=== PATIENT | female | born 1980 | race Caucasian/White ===

== ENCOUNTER 2017-05-07 09:28 | Emergency (ER) | payer SELFPAY ==
[2017-05-07] MEDS ORDERED: SODIUM CHLORIDE 1,000 ML IV STA ×2 (09:38→10:58)
[2017-05-07 09:44] VITALS: BP 115/81; PULSE 84; TEMP 98.1; BMI 29.5
--- NOTE | 2017-05-07 10:00 | PDOC ---
History of Present Illness - General Chief Complaint: Lightheaded Stated Complaint: DIZZINESS Time Seen by Provider: 05/07/17 09:32 History Source: Patient, Old Records Exam Limitations: No Limitations - History of Present Illness Initial Comments: 05/07/17 09:57 37-year-old female with history of gestational diabetes and anxiety presents the emergency Department with complaints of 4 days of feeling generalized weakness and dizziness. The patient states that she was treated at [facility] last week on Thursday for a yeast infection and was told that she had glucose in her urine and needed to follow-up. The patient does not have a primary care physician. She also has various other complains such as intermittent vomiting and occasional blurry vision. She denies chest pain, shortness of breath, abdominal pain. She denies further complaints. Past History - Past Medical History Allergies/Adverse Reactions: Allergies Allergy/AdvReac Type Severity Reaction Status Date / Time fish derived Allergy Mild Verified 05/07/17 09:38 shellfish derived Allergy Mild Verified 05/07/17 09:38 Home Medications: Ambulatory Orders Citalopram Hydrobromide [Celexa -] 10 mg PO HS 10/31/14 Metformin HCl [Glucophage] 500 mg PO BID #60 tablet 05/07/17 Diabetes: Yes (GESTATIONAL DIABETES) Psychiatric Problems: Yes (DEPRESSION, ANXIETY) - Surgical History Appendectomy: Yes - Reproductive History (#): 4 Para: 2 Therapeutic (s) & number: No Spontaneous : 1 - Psycho/Social/Smoking Cessation Hx Anxiety: No Suicidal Ideation: No Smoking Status: No Smoking History: Former smoker Have you smoked in the past 12 months: Yes Number of Cigarettes Smoked Daily: 1 Information on smoking cessation initiated: Yes 'Breaking Loose' booklet given: 05/07/17 Hx Alcohol Use: No Substance Use Type: None Review of Systems - Review of Systems Able to Perform ROS?: Yes Is the patient limited Greenlandic proficient: No Constitutional: Yes: See HPI HEENTM: Yes: Blurred Vision Respiratory: No: Symptoms reported Cardiac (ROS): No: Symptoms Reported ABD/GI: No: Symptoms Reported : Yes: See HPI Musculoskeletal: No: Symptoms Reported Integumentary: No: Symptoms Reported Neurological: No: Symptoms reported *Physical Exam - Vital Signs Last Vital Signs Temp Pulse Resp BP Pulse Ox 98.1 F 84 18 115/81 96 05/07/17 09:30 05/07/17 09:30 05/07/17 09:30 05/07/17 09:30 05/07/17 09:30 - Physical Exam Comments: 05/07/17 09:58 GENERAL: Well developed, well nourished. Awake and alert. No acute distress. HEENT: Normocephalic, atraumatic. PERRLA, EOMI. No conjunctival pallor. Sclera are non- icteric. Moist mucous membranes. Oropharynx is clear. NECK: Supple. Full ROM. No JVD. No lymphadenopathy. CARDIOVASCULAR: Regular rate and rhythm. No murmurs, rubs, or gallops. Distal pulses are 2+ and symmetric. PULMONARY: No evidence of respiratory distress. Lungs clear to auscultation bilaterally. No wheezing, rales or rhonchi. ABDOMINAL: Soft. Non-tender. Non-distended. No rebound or guarding. No organomegaly. Normoactive bowel sounds. MUSCULOSKELETAL Normal range of motion at all joints. No bony deformities or tenderness. No CVA tenderness. EXTREMITIES: No cyanosis. No clubbing. No edema. No calf tenderness. SKIN: Warm and dry. Normal capillary refill. No rashes. No jaundice. NEUROLOGICAL: Alert, awake, appropriate. Cranial nerves 2-12 intact. Grossly non-focal exam. PSYCHIATRIC: Cooperative. Good eye contact. Appropriate mood and affect. ED Treatment Course - LABORATORY CBC & Chemistry Diagram: 05/07/17 10:00 05/07/17 10:00 Medical Decision Making - Medical Decision Making 05/07/17 09:59 37-year-old female with complaints of weakness and dizziness. Differential diagnosis includes but is not limited to: New-onset diabetes, electrolyte abnormality, atypical presentation of ACS, toxic/metabolic derangement, infection, . Plan: 1. Urine analysis 2. EKG 3. Labs 4. Observe and reevaluate 05/07/17 11:30 Labs were reviewed and are noted in the EMR. The glucose is in the 300s but the anion gap is normal and she is not acidotic. The patient was hydrated with 2 L of IV fluids and repeat glucose is 264. Her EKG shows normal sinus rhythm at 75 bpm with normal axis, intervals and no acute ST segment changes. The plan is to discharge the patient home with Glucophage 500 mg twice a day. I have informed the patient that she is follow-up with primary care physician and return to the emergency department if her symptoms persist, worsen, or new symptoms arise. *DC/Admit/Observation/Transfer Diagnosis at time of Disposition: Weakness, Uncontrolled diabetes mellitus - Discharge Dispostion Disposition: HOME Condition at time of disposition: Stable Admit: No - Prescriptions Prescriptions: Metformin HCl [Glucophage] 500 mg PO BID #60 tablet - Patient Instructions Printed Discharge Instructions: DI for Diabetes Type 2 Additional Instructions: You have diabetes. You have been prescribed a medication called Glucophage 500 mgtake 1 tablet twice daily. Please follow-up with her primary care physician within the next week and return to the emergency department if your symptoms persist, worsen, or new symptoms arise.
[2017-05-07 10:23] LABS: BASOPHIL 0.8 % (0-2.0); EOSINOPHIL 2.7 % (0-4.5); MCH 26.9 pg (25.7-33.7); MCHC 34.4 g/dl (32.0-36.0); MEAN CELL VOLUME 78.3 fl (80-96); MEAN PLT VOLUME 9.3 fl (7.5-11.1); NEUTROPHILS 61.2 % (42.8-82.8); PLATELET COUNT 292 K/MM3 (134-434); RDW 11.7 % (11.6-15.6); WHITE BLOOD COUNT 7.9 K/mm3 (4.0-10.8)
[2017-05-07 10:27] LABS: PH,URINE 5.5 (4.5-8); URINE APPEARANCE Clear; URINE BILIRUBIN Negative (NEGATIVE); URINE BLOOD Trace-intact (NEGATIVE); URINE GLUCOSE (UA) 3+ (NEGATIVE); URINE KETONE 2+ (NEGATIVE); URINE LEUK ESTERASE Negative (NEGATIVE); URINE NITRITE Negative (NEGATIVE); URINE PROTEIN Negative (NEGATIVE); URINE UROBILINOGEN 0.2 E.U/dl (0.2-1.0)
[2017-05-07 10:47] LABS: ALBUMIN 3.2 g/dl (3.5-5.0); ALK PHOS 71 U/L (32-92); ANION GAP 9 (8-16); BILIRUBIN,TOTAL 0.7 mg/dl (0.2-1.0); CALCIUM 8.8 mg/dl (8.4-10.2); CO2 25 mmol/L (22-28); COCKROFT - GAULT 176.6045; CPK(DFH) 57 IU/L (26-140); CREATININE 0.6 mg/dl (0.6-1.3); MAGNESIUM 1.6 mg/dL (1.8-2.4); PHOSPHOROUS 3.2 mg/dl (2.5-4.6); SGOT/AST 14 U/L (10-42); SGPT/ALT 15 U/L (10-40); TOT PROT 6.3 g/dl (6.4-8.3)
[2017-05-07 10:53] LABS: URINE COLOR YELLOW
[2017-05-07 10:56] LABS: GLUCOSE,RANDOM 337 mg/dl (74-106)
[2017-05-07] MEDS ORDERED: SODIUM CHLORIDE 1,000 ML IV ONE (10:56)
[2017-05-07] MEDS ORDERED: HEMOQUE TEST 1 EACH EACH ONE (11:24)
--- NOTE | 2017-05-07 17:52 | EKG ---
Test Reason : Blood Pressure : / mmHG Vent. Rate : 075 BPM Atrial Rate : 075 BPM P-R Int : 138 ms QRS Dur : 080 ms QT Int : 456 ms P-R-T Axes : 051 032 008 degrees QTc Int : 509 ms NORMAL SINUS RHYTHM PROLONGED QT Mild NSTW changes NO PREVIOUS ECGS AVAILABLE Confirmed by MD GERALDINE, SIERRA ([id number]) on 05/07/2017 5:52:19 PM Referred By: LILIAM OHARA Confirmed By:SIERRA CHANDLER MD
[2017-05-07 19:13] LABS: TROPONIN I (DFP) < 0.03 ng/ml (0.03-0.50)
== END 2017-05-07 11:40 | disposition home or self-care (01) ==
LOC: FER 09:28
PROC: 3E0337Z Introduction of Electrolytic and Water Balance Substance into Peripheral Vein, Percutaneous Approach (ICD-10-PCS; principal; 2017-05-07)
DX: E11.65 Type 2 diabetes mellitus with hyperglycemia (principal); R53.1 Weakness; Z86.32 Personal history of gestational diabetes; Z87.891 Personal history of nicotine dependence; F41.8 Other specified anxiety disorders
CPT/HCPCS: 36415; 80053; 81003; 82550; 83690; 83735; 84100; 84484; 84703; 85025; 93005; 99283-25

== ENCOUNTER 2017-06-09 18:38 | Emergency (ER) | payer SELFPAY ==
[2017-06-09 18:45] VITALS: BP 111/70; PULSE 95; TEMP 98.3; BMI 27.9
[2017-06-09] MEDS ORDERED: DEXAMETHASONE SOD PHOSPHATE 10 MG/1 ML VIAL IM ONE (19:23)
--- NOTE | 2017-06-09 19:24 | PDOC ---
History of Present Illness - History of Present Illness Initial Comments: 06/09/17 19:29 The patient is a 37 year old female, with a significant past medical history of hypertension, gestational diabetes, and anxiety, who presents to the emergency department with progressive edema to her upper lip since this morning. She reports taking one tablet of Benadryl this morning. She states the swelling began to the left side of her top lip, however, has progressed to the right side , as well. She states the swelling is now subsiding minimally since she has been in the ED. She denies trouble breathing. The patient does reports starting new medications two weeks ago (lisinopril, crestor, tradjenta and metformin). She denies the use of new lotions or body washes. She denies eating new foods. She denies chest pain, shortness of breath, headache and dizziness. She denies fever, chills, nausea, vomit, diarrhea and constipation. She denies dysuria, frequency, urgency and hematuria. PAST MEDICAL HISTORY: hypertension, diabetes, and anxiety PAST SURGICAL HISTORY: appendectomy FAMILY HISTORY: no pertinent history SOCIAL HISTORY: Pt lives with family and is employed. MEDICATIONS: reviewed ALLERGIES: As per nursing notes ROS General: No fevers or chills, no weakness, no weight loss HEENT: (+) facial edema. No change in vision. No sore throat,. No ear pain CardioVascular: No chest pain or shortness of breath Respiratory:No cough, or wheezing. Gastrointestinal: no nausea, vomiting, diarrhea or constipation, No rectal bleeding Genitourinary: No dysuria, hematuria, or frequency Musculoskeletal: No joint or muscle pain or swelling Neurologic: No headache, vertigo, dizziness or loss of consciousness Psychiatric: nor depression Skin: (+) facial edema. No rashes or easy bruising Endocrine: no increased thirst or abnormal weight change Allergic: no skin or latex allergy All other systems reviewed and normal Physical Exam: General: Well-nourished well-developed individual, no acute distress HEENT: (+) mild angioedema of upper lip, no angioedema to tongue or posterior oropharynx. Throat: Normal, tonsils normal, no erythema or exudate Eyes:Pupils equal reactive and round, extraocular motion intact Chest: Nontender to palpation Cardiac: S1-S2 normal, regular rate and rhythm, no murmurs rubs or gallops Respiratory: Lungs clear to auscultation bilateral. No wheezing. Extremities: Warm, dry, no cyanosis, clubbing, or edema Skin: (+) mild angioedema of upper lipNo rashes Neuro: Alert and oriented x3, nonfocal exam, grossly intact, normal gait Psych: Normal mood and affect <Elva Sherman - Last Filed: 06/09/17 19:30> - General History Source: Patient Exam Limitations: No Limitations - History of Present Illness Initial Comments: 06/09/17 21:12 A portion of this note was documented by scribe services under my direction. I have reviewed the details of the note, within reason, and agree with the documentation. The case summary and management plan written by me. This is a 37-year-old female who comes in with angioedema of her upper lips. Patient was recently started on lisinopril. Patient was given Decadron and Benadryl in the emergency room with minimal improvement in her symptoms however they did not progress. Patient did not have any angioedema of her tongue or posterior oropharynx. Patient was observed for several hours in the emergency room and discharged home on a Medrol Dosepak and told to also take Anamaria. Patient was also told to stop lisinopril and make sure that she notified her doctor of the angioedema. In addition to that patient was told to not take any medications that ended in the word pril. <Dennis Brennan I - Last Filed: 06/09/17 21:15> - General Chief Complaint: Edema Stated Complaint: FACIAL SWELLING Time Seen by Provider: 06/09/17 19:21 Past History <Elva Sherman - Last Filed: 06/09/17 19:30> - Past Medical History Diabetes: Yes HTN: (ON BP MEDS FOR PREVENTION) Hypercholesterolemia: Yes Psychiatric Problems: Yes (DEPRESSION, ANXIETY) - Surgical History Appendectomy: Yes - Reproductive History (#): 4 Para: 2 Therapeutic (s) & number: No Spontaneous : 1 - Psycho/Social/Smoking Cessation Hx Anxiety: No Suicidal Ideation: No Smoking Status: No Smoking History: Current every day smoker Have you smoked in the past 12 months: Yes Number of Cigarettes Smoked Daily: 1 Information on smoking cessation initiated: Yes 'Breaking Loose' booklet given: 06/09/17 Hx Alcohol Use: No Substance Use Type: None <Dennis Brennan I - Last Filed: 06/09/17 21:15> - Past Medical History Allergies/Adverse Reactions: Allergies Allergy/AdvReac Type Severity Reaction Status Date / Time No Known Drug Allergies Allergy Verified 06/09/17 18:40 Home Medications: Ambulatory Orders Citalopram Hydrobromide [Celexa -] 10 mg PO HS 10/31/14 Aspirin [Aspirin EC] 81 mg PO DAILY 06/09/17 Linagliptin [Tradjenta] 5 mg PO DAILY 06/09/17 Lisinopril [Zestril] 2.5 mg PO DAILY 06/09/17 Metformin HCl [Glucophage] 1,000 mg PO BID 06/09/17 Methylprednisolone [Medrol Dose Jp] 4 mg PO ASDIR #21 tablet 06/09/17 Rosuvastatin [Crestor -] 20 mg PO HS 06/09/17 *Physical Exam - Vital Signs Last Vital Signs Temp Pulse Resp BP Pulse Ox 98.3 F 95 H 18 111/70 96 06/09/17 18:38 06/09/17 18:38 06/09/17 18:38 06/09/17 18:38 06/09/17 18:38 <Elva Sherman - Last Filed: 06/09/17 19:30> - Vital Signs Last Vital Signs Temp Pulse Resp BP Pulse Ox 98.3 F 95 H 18 111/70 96 06/09/17 18:38 06/09/17 18:38 06/09/17 18:38 06/09/17 18:38 06/09/17 18:38 <Dennis Brennan I - Last Filed: 06/09/17 21:15> *DC/Admit/Observation/Transfer - Attestations Scribe Attestion: 06/09/17 19:31 Documentation prepared by Elva Sherman, acting as medical record assistant for Dennis Brennan MD <Elva Sherman - Last Filed: 06/09/17 19:30> - Discharge Dispostion Admit: No <Dennis Brennan I - Last Filed: 06/09/17 21:15> Diagnosis at time of Disposition: Angioedema of lips Qualifiers: Encounter type: initial encounter Qualified Code(s): T78.3XXA - Angioneurotic edema, initial encounter - Discharge Dispostion Disposition: HOME Condition at time of disposition: Stable - Prescriptions Prescriptions: Methylprednisolone [Medrol Dose Jp] 4 mg PO ASDIR #21 tablet - Patient Instructions Additional Instructions: It is very important that you stop taking the lisinopril as it is most likely the cause of the swelling of her lips.. In addition to that it is very important that you do not take any medications that and in the word PRIL. Call your doctor in the morning and let him know that you had swelling of the lips and that the doctor in the emergency room stopped your lisinopril.. You will need to be started on a different medication for hypertension. I a prescription to your pharmacy for a Medrol Dosepak get the prescription filled and take the medication as directed by the Dosepak. In addition to that get [id number] Anamaria and take it once a day for a week. Return to the emergency department immediately with ANY new, persistent or worsening symptoms. Continue any medications as previously prescribed by your physician. You should follow up with your primary doctor as soon as possible regarding today's emergency department visit. . Please make sure your doctor reviews the results of your emergency evaluation. Thank you for coming to the Emergency Department today for your care. It was a pleasure to see you today. Please note that your evaluation is INCOMPLETE until you follow-up with your doctor.
[2017-06-09] MEDS ORDERED: diphenhydrAMINE HCL 50 MG CAPSULE PO ONE (19:25)
[2017-06-09] MEDS ORDERED: diphenhydrAMINE HCL 25 MG CAPSULE (FP) PO ONE (19:26)
[2017-06-09] MEDS ORDERED: DEXAMETHASONE SOD PHOSPHATE 10 MG/1 ML VIAL ONE (19:26)
== END 2017-06-09 21:19 | disposition home or self-care (01) ==
LOC: FER 18:38
PROC: 3E033GC Introduction of Other Therapeutic Substance into Peripheral Vein, Percutaneous Approach (ICD-10-PCS; principal; 2017-06-09)
DX: T78.3XXA Angioneurotic edema, initial encounter (principal)
CPT/HCPCS: 99282-25

== ENCOUNTER 2023-09-05 20:07 | Emergency (ER) | payer OTHER ==
[2023-09-05 20:41] VITALS: BP 112/69; PULSE 85; RESP 17; TEMP 97.2; BMI 27.3
== END 2023-09-05 21:27 | disposition home or self-care (01) ==
LOC: FER 20:07
DX: R53.81 Other malaise (principal); R53.83 Other fatigue; F41.9 Anxiety disorder, unspecified
CPT/HCPCS: 99282-25